=== PATIENT | female | born 1970 | race Caucasian/White ===

== ENCOUNTER → 2020-12-26 01:40 | Outpatient (CLI) | payer OTHER, SELFPAY ==
[2020-12-26 19:04] LABS: SARS-CoV-2 RNA PCR Negative
== END ==
PROVIDERS: PCP Nurse Practitioner Adult Health; Visit Provider Internal Medicine Gastroenterology
DX: Z01.812 Encounter for preprocedural laboratory examination (principal); Z20.822 Contact with and (suspected) exposure to COVID-19
CPT/HCPCS: C9803; U0003; U0005

== ENCOUNTER 2020-12-29 02:09 | Day surgery (SDC) | payer OTHER, SELFPAY ==
[2020-12-21 13:54] VITALS: BMI 27.3
--- NOTE | 2020-12-29 10:51 | WPDGICN ---
GI Consult Note Consult date/time: 12/29/20 10:51 HPI: Reason for visit is colonoscopy. Impression: Screening colonoscopy. Recommendation: Colonoscopy. History: This very pleasant lady has a negative GI review of systems. This is Kristina screening colonoscopy. Physical examination: General: very pleasant patient in no acute distress. HEENT: Head was normocephalic sclerae is clear mouth without masses neck was supple. Heart: Rate rhythm regular without S3 or S4. Lungs: CTA. Abdomen: Soft with no guarding or rigidity. Bowel sounds were active. Neurologic: Cranial nerves 2 through 12 intact. No focal defects. No clonus. Musculoskeletal system: Revealed no joint tenderness or swelling no muscle atrophy. Extremities: Reveal no significant edema. Skin: Warm and dry with normal turgor. Mental status: intact. Patient is alert and oriented. Review of Systems Review of Systems: All systems reviewed & are unremarkable except as noted in HPI and below PMFSH Social History Social History Alcohol intake: current Drinks per week: 3 Living arrangements: with family Gender identity (if verbalized by the patient): Female Spiritual care concerns: No Meds Home Medications and Allergies Home Medications Medication Instructions Recorded Confirmed Type ascorbic acid (vitamin C) [Vitamin 250 mg PO DAILY 12/21/20 12/21/20 History C] multivitamin 1 tablet PO DAILY 12/21/20 12/21/20 History vitamin B complex 1 tablet PO DAILY 12/21/20 12/21/20 History Allergies Allergy/AdvReac Type Severity Reaction Status Date / Time Penicillins Allergy Unknown Verified 12/21/20 13:51
--- NOTE | 2020-12-29 10:52 | P.PNAN_ITS ---
Anes - Initial Pre Proc Eval Procedure: Operation Date: 12/29/20 12:00 Proposed Procedures p Screening Colonoscopy - Marvin Ellis DO Date/Time: 12/29/20 10:52 Surgeon: Marvin Ellis DO Pre Op Diagnosis: neoplasm screening Patient Data Age: 50 Gender: F Height: 5 ft 6 in Weight: 77 kg Allergies Allergy/AdvReac Type Severity Reaction Status Date / Time Penicillins Allergy Unknown Hives Verified 12/29/20 10:59 Home Medications Medication Instructions Recorded Confirmed Type ascorbic acid (vitamin C) [Vitamin 250 mg PO DAILY 12/21/20 12/21/20 History C] multivitamin 1 tablet PO DAILY 12/21/20 12/21/20 History vitamin B complex 1 tablet PO DAILY 12/21/20 12/21/20 History Patient hx anesthesia problems: none Family hx anesthesia problems: none PMFSH Past Medical History Medical History (Updated 12/29/20 @ 10:52 by Bertrand Rodriguez MD) Overweight Surgical History Surgical History (Updated 12/29/20 @ 10:52 by Bertrand Rodriguez MD) History of section Hx of tonsillectomy [place] teeth extracted Social History Social History Alcohol intake: current Drinks per week: 3 Living arrangements: with family Gender identity (if verbalized by the patient): Female Spiritual care concerns: No Anes - Eval Final PreProcedure Day of Procedure 12/29/20 10:52 Patient weight: overweight Heart: regular rate and rhythm Lungs: clear to auscultation Airway: Mallampati scale class 1 Neurological: alert and oriented Last oral intake: >/= 8 hours ASA classification: II Emergent: no Anesthetic plan: proceed Anesthesia type and monitoring: general GIVS and standard monitoring Informed Consent: The patient's anesthetic plan and its attendant risks and benefits were discussed with the patient/family/POA. Questions were solicited and answers provided to the satisfaction of the patient/family/POA.
[2020-12-29] MEDS: LACTATED RINGERS 1,000 ML 150 ML IV CONT (10:57)
[2020-12-29 11:00] VITALS: BP 137/90; PULSE 62; RESP 16; TEMP 36.4; O2SAT 100; BMI 27.4
[2020-12-29 11:20] VITALS: BP 135/90; PULSE 74; RESP 17; O2SAT 99
[2020-12-29 11:30] VITALS: BP 132/89; PULSE 65; RESP 18; O2SAT 100
[2020-12-29 11:40] VITALS: BP 130/88; PULSE 60; RESP 17; O2SAT 100
== END 2020-12-29 11:48 | disposition home or self-care (01) ==
PROVIDERS: PCP Nurse Practitioner Adult Health; Visit Provider Internal Medicine Gastroenterology
PROC: 0DJD8ZZ Inspection of Lower Intestinal Tract, Via Natural or Artificial Opening Endoscopic (ICD-10-PCS; CPT 45378; principal; 2020-12-29 12:00)
DX: Z12.11 Encounter for screening for malignant neoplasm of colon (principal)
CPT/HCPCS: 45378; C9803; J2704; J7120; U0003; U0005

== ENCOUNTER → 2022-07-30 12:31 | Outpatient (CLI) | payer OTHER, SELFPAY ==
--- NOTE | ~2022-07-30 | MM_ITS ---
EXAMINATION: MM screening ovi BI w jonathan HISTORY: Screening mammogram TECHNIQUE: Craniocaudal and mediolateral oblique 3-D tomosynthesis images were obtained and synthetic 2-D images were generated. CAD analysis was submitted and interpreted. COMPARISON: November 02, 2015 bilateral screening mammogram BREAST PARENCHYMAL COMPOSITION: The breasts are heterogeneously dense, which may obscure small masses . FINDINGS: Bilateral mammographic asymmetries. Bilateral diagnostic mammography is recommended, with ultrasound if required IMPRESSION: 1. Bilateral mammographic asymmetries 2. Bilateral diagnostic mammography is recommended, with ultrasound if required BI-RADS Category 0: Incomplete: Needs additional imaging evaluation. Reviewed, dictated and finalized at location A. CY CHECKER
== END ==
PROVIDERS: PCP Nurse Practitioner Adult Health; Visit Provider Nurse Practitioner Adult Health
DX: Z12.31 Encounter for screening mammogram for malignant neoplasm of breast (principal); R92.8 Other abnormal and inconclusive findings on diagnostic imaging of breast
CPT/HCPCS: 77063; 77067

== ENCOUNTER → 2022-08-22 08:07 | Outpatient (CLI) | payer OTHER, SELFPAY ==
--- NOTE | ~2022-08-22 | MMUS_ITS ---
EXAMINATION: MM diagnostic ovi BI w jonathan, US breast BI complete HISTORY: Follow-up bilateral breast asymmetries. TECHNIQUE: Additional 3-D tomosynthesis images of the breasts were performed and synthetic 2-D images were generated. CAD analysis was submitted and interpreted. High resolution complete bilateral breas t ultrasound was performed. COMPARISON: Comparison to multiple prior studies sequentially, with oldest reviewed study dated 11/02. BREAST PARENCHYMAL COMPOSITION: BREAST PARENCHYMAL COMPOSITION: The breasts are heterogeneously dense, which may obscure small masses . FINDINGS: MAMMOGRAPHIC FINDINGS: There are persistent bilateral breast asymmetries in both breasts, although no discrete mass is ident ified. No suspicious cluster of calcifications. ULTRASOUND: Complete bilateral US of all 4 quadrants of the breasts and retroareolar region was reviewed. Right breast: At 1:00, 6 cm from the nipple there is a 4 mm cyst. At 9:00, 5 cm from the nipple there is a 4 mm cyst. At 10:00, 7 cm from the nipple there is a 5 mm cyst. At 10:00, 7 cm from the nipple there is a round hypoechoic mass measuring 4 mm without posterior features or internal vascularity. A t 10:00, 6 cm from the nipple, there are 2 adjacent oval hypoechoic masses, the smaller measuring 4 m m, likely a complicated cyst. The larger measures up to 10 mm and is oval with posterior acoustic enh ancement, no internal vascularity, parallel orientation with internal cystic changes, possibly a clus ter of microcysts. Left breast: At 12:00, 2 cm from the nipple there is a 4 mm cyst. At 2:00, 8 cm from the nipple, ther e is a slightly irregular shaped hypoechoic nodule measuring 6 mm with heterogeneous internal echotex ture, no posterior features, parallel orientation and no internal vascularity. On the longitudinal im ages there appears to be an echogenic hilum, most likely benign intramammary lymph node. At 3:00, 5 c m from the nipple there is an oval hypoechoic mass measuring 4 mm with echogenic hilum, possibly smal l intramammary lymph node. At 6:00, 3 cm from the nipple there is a 4 mm complicated cyst. At 7:00, 3 cm from the nipple there is a heterogeneous oval parallel predominantly hypoechoic mass with no sign ificant posterior features or internal vascularity measuring 1 cm maximum dimension. At 9:00, 3 cm fr om the nipple there is an irregular shaped hypoechoic mass with posterior shadowing measuring 7 mm. T here is some internal cystic change. No internal vascularity. IMPRESSION: 1. Irregular shaped left breast mass measuring up to 7 mm at 9:00, 3 cm from the nipple. Ultrasound-g uided biopsy recommended. 2. Multiple additional bilateral breast masses are likely benign. Six-month follow-up diagnostic bila teral mammogram and ultrasound recommended. BI-RADS category 4, suspicious findings. Reviewed, dictated and finalized at location B. [employer] MARKETER IMPRESSION: 1. Irregular shaped left breast mass measuring up to 7 mm at 9:00, 3 cm from th e nipple. Ultrasound-guided biopsy recommended. 2. Multiple additional bilateral breast masses are likely benign. Six-month fol low-up diagnostic bilateral mammogram and ultrasound recommended. BI-RADS category 4, suspicious findings.
== END ==
PROVIDERS: PCP Nurse Practitioner Adult Health; Visit Provider Nurse Practitioner Adult Health
DX: R92.8 Other abnormal and inconclusive findings on diagnostic imaging of breast (principal)
CPT/HCPCS: 76641; 77062; 77066; G0279

== ENCOUNTER 2022-09-07 10:14 | Outpatient (CLI) | payer OTHER, SELFPAY ==
--- NOTE | ~2022-09-07 | US_ITS ---
US breast LT limited DATE: 09/07/2022 10:46 INDICATION: Patient presented for recommended ultrasound guided biopsy of 9:00 lesion 3 cm from nippl e based upon 08/22/2020 ultrasound examination TECHNIQUE: Real-time imaging and color flow imaging targeted at 9:00 3 cm from nipple COMPARISON: 08/22/2022 bilateral diagnostic mammography and complete bilateral breast ultrasound FINDINGS: There is a circumscribed parallel 3.6 x 1.9 x 3.7 mm sonolucency, without internal vascular ity or posterior shadowing, consistent with small cyst. IMPRESSION: BI-RADS Category 2: Benign Recommendation: Routine annual mammographic screening Reviewed, dictated and finalized at Location A. Reviewed, dictated and finalized at location A. RAISER LOCKSTITCH
== END 2022-09-07 10:15 | disposition home or self-care (01) ==
PROVIDERS: PCP Nurse Practitioner Adult Health; Visit Provider Family Medicine
DX: R92.8 Other abnormal and inconclusive findings on diagnostic imaging of breast (principal)
CPT/HCPCS: 76642

== ENCOUNTER 2024-01-16 12:22 | Outpatient (CLI) | payer OTHER, SELFPAY ==
--- NOTE | ~2024-01-16 | MM_ITS ---
EXAMINATION: MM screening ovi BI w jonathan HISTORY: Screening mammogram TECHNIQUE: Craniocaudal and mediolateral oblique 3-D tomosynthesis images were obtained and synthetic 2-D images were generated. CAD analysis was submitted and interpreted. COMPARISON: 09/07/2022 Limited left breast ultrasound examination 08/22/2022 bilateral diagnostic mammography and bilateral complete breast ultrasound examination 07/30/2022 bilateral screening mammogram BREAST PARENCHYMAL COMPOSITION: The breasts are heterogeneously dense, which may obscure small masses . FINDINGS: There is no evidence of suspicious mass, calcification, or architectural distortion to sugg est malignancy in either breast. There has been no suspicious interval change. IMPRESSION: 1. No mammographic evidence of malignancy. 2. Recommend routine screening mammography in one year. BI-RADS Category 1: Negative Reviewed, dictated and finalized at location B.
== END 2024-01-16 12:23 ==
LOC: MICIMG 12:24
PROVIDERS: PCP Internal Medicine; Visit Provider Internal Medicine
DX: Z12.31 Encounter for screening mammogram for malignant neoplasm of breast (principal)
CPT/HCPCS: 77063; 77067

== ENCOUNTER 2025-01-20 10:22 | Outpatient (CLI) | payer OTHER, SELFPAY ==
--- NOTE | ~2025-01-20 | MM_ITS ---
EXAMINATION: MM screening ovi BI w jonathan HISTORY: Screening TECHNIQUE: Craniocaudal and mediolateral oblique 3-D tomosynthesis images were obtained and synthetic 2-D images were generated. CAD analysis was submitted and interpreted. COMPARISON: Comparison to multiple prior studies sequentially, with oldest reviewed study dated 11/02. BREAST PARENCHYMAL COMPOSITION: Not dense: There are scattered areas of fibroglandular density. FINDINGS: The right breast is stable without evidence for malignancy.2 there is focal asymmetry in th e upper outer quadrant of the left breast without discrete mass. IMPRESSION: 1. Developing focal asymmetry upper outer quadrant of the left breast, middle third. 2. Additional mammographic views and possible breast ultrasound are recommended. BI-RADS Category 0: Incomplete: Needs additional imaging evaluation. Reviewed, dictated and finalized at location A. IMPRESSION: 1. Developing focal asymmetry upper outer quadrant of the left breast, middle t hird. 2. Additional mammographic views and possible breast ultrasound are recommended . BI-RADS Category 0: Incomplete: Needs additional imaging evaluation.
== END 2025-01-20 10:23 | disposition home or self-care (01) ==
LOC: MICIMG 10:23
PROVIDERS: PCP Internal Medicine; Visit Provider Internal Medicine
DX: Z12.31 Encounter for screening mammogram for malignant neoplasm of breast (principal); R92.8 Other abnormal and inconclusive findings on diagnostic imaging of breast
CPT/HCPCS: 77063; 77067

== ENCOUNTER 2025-04-22 09:22 | Outpatient (CLI) | payer OTHER, SELFPAY ==
--- NOTE | ~2025-04-22 | MMUS_ITS ---
EXAMINATION: MM diagnostic voi LT w jonathan, US breast LT complete HISTORY: Follow-up left breast asymmetries. TECHNIQUE: Additional 3-D tomosynthesis images of the left breast were performed and synthetic 2-D im ages were generated. CAD analysis was submitted and interpreted. High resolution complete left breast ultrasound was performed. COMPARISON: Comparison to multiple prior studies sequentially, with oldest reviewed study dated 11/02. BREAST PARENCHYMAL COMPOSITION: Dense: The breasts are heterogeneously dense, which may obscure small masses FINDINGS: MAMMOGRAPHIC FINDINGS: Areas of asymmetry in the left breast compress with spot views. No discrete mass, architectural disto rtion or suspicious calcifications are identified. ULTRASOUND: Limited left breast ultrasound: There are multiple cysts of the left breast including a cluster of mi crocysts at 2:00, 1 cm from the nipple measuring 6 mm in aggregate. There is a small cluster of micro cysts at 8:00, 2 cm from the nipple measuring 5 mm. No suspicious sonographic abnormalities to sugges t malignancy. IMPRESSION: 1. No evidence for malignancy in the left breast. Benign findings. 2. Routine yearly screening mammogram and regular clinical breast examination are recommended. BI-RADS Category 2: Benign finding(s). Reviewed, dictated and finalized at location A. IMPRESSION: 1. No evidence for malignancy in the left breast. Benign findings. 2. Routine yearly screening mammogram and regular clinical breast examination a re recommended. BI-RADS Category 2: Benign finding(s).
== END 2025-04-22 09:23 | disposition home or self-care (01) ==
LOC: MICIMG 09:23
PROVIDERS: PCP Internal Medicine; Visit Provider Internal Medicine
DX: R92.8 Other abnormal and inconclusive findings on diagnostic imaging of breast (principal)
CPT/HCPCS: 76641; 77061; 77065; G0279